=== PATIENT | male | born 1980 | race Caucasian/White ===

== ENCOUNTER 2016-10-03 22:08 | Emergency (ER) | payer BC ==
[2016-10-04] MEDS ORDERED: NS 0.9% 1000 ML* 2,000 ML IV ONE (00:31)
[2016-10-04] MEDS ORDERED: Acetaminophen TAB* 325 MG ONE (00:47)
[2016-10-04] MEDS ORDERED: Acetaminophen TAB* 325 MG PO ONE ×2 (00:49→05:11)
[2016-10-04 00:58] LABS: Hematocrit 48 % (42-52); Hemoglobin 16.5 g/dl (14.0-18.0); Mean Corpuscular HGB Conc 34 g/dl (31-36); Mean Corpuscular Hemoglobin 34 pg (27-31); Mean Corpuscular Volume 98 fL (80-94); Mean Platelet Volume 8 um3 (7.4-10.4); Red Blood Count 4.91 10^6/ul (4.0-5.4); Red Cell Distribution Width 13 % (10.5-15); White Blood Count 15.2 10^3/ul (3.5-10.8)
[2016-10-04 01:04] LABS: Albumin 3.7 g/dL (3.2-5.2); BUN/Creatinine Ratio 10.1 (8-20); Calcium 9.5 mg/dL (8.6-10.3); EGFR African American 168.8 (>60); EGFR Non-African American 131.3 (>60); Globulin 3.8 g/dL (2-4); Magnesium 1.4 mg/dL (1.9-2.7); Potassium 3.2 mmol/L (3.5-5.0); Total Bilirubin 0.9 mg/dL (0.2-1.0); Total Protein 7.5 g/dL (6.4-8.9)
[2016-10-04 01:19] LABS: Urine Bacteria Absent (Absent); Urine Bilirubin 1+ (Negative); Urine Glucose Negative (Negative); Urine Nitrite Negative (Negative)
[2016-10-04] MEDS ORDERED: cefTRIAXone VIAL(*) 250 MG VIAL IM ONE (01:49)
[2016-10-04] MEDS ORDERED: Azithromycin TAB* 250 MG PO ONE (01:49)
[2016-10-04] MEDS ORDERED: Lidocaine 1%* 5 ML VIAL ONE (02:08)
--- NOTE | 2016-10-04 03:26 | ED ---
Ashleigh Garcia Rebecca, scribed for Paulo Lin MD on 10/04/16 at 0033 . HPI Febrile Illness - HPI Summary HPI Summary: Pt is a 36 y/o M who presents to ED c/o fever. Sx began at 1800 today and was 103 at its highest. Took Iuprofen at 2030 which alleviated sx. Additionally c/o purulent penile discharge and dysuria for 4 days. Denies N/V/D. No prior similar episodes. Pt reports known gonorrhea exposure. Has not seen his PCP for this issue. - History of Current Complaint Chief Complaint: EDFever Time Seen by Provider: 10/04/16 00:28 Hx Obtained From: Patient Onset/Duration: Still Present Time of Onset: 18:00 Temperature: 103 F Current Severity: Mild Pain Intensity: 3 Pain Scale Used: 0-10 Numeric Aggravating Factors: Nothing Alleviating Factors: OTC Medicine - Ibuprofen Associated Signs and Symptoms: Dysuria, Other: - Penile discharge - Allergy/Home Medications Allergies/Adverse Reactions: Allergies Allergy/AdvReac Type Severity Reaction Status Date / Time No Known Allergies Allergy Verified 10/03/16 22:10 PMH/Surg Hx/FS Hx/Imm Hx Endocrine/Hematology History: Denies: Hx Diabetes Cardiovascular History: Denies: Hx Coronary Artery Disease, Hx Hypertension Infectious Disease History: No Infectious Disease History: Denies: Traveled Outside the [place] in Last 30 Days - Family History Known Family History: Positive: Hypertension - Social History Alcohol Use: Daily Substance Use Type: Reports: Marijuana Smoking Status (MU): Never Smoked Tobacco Review of Systems Positive: Fever Negative: Vomiting, Diarrhea, Nausea Positive: dysuria, discharge - Purulent penile discharge All Other Systems Reviewed And Are Negative: Yes Physical Exam Triage Information Reviewed: Yes Vital Signs On Initial Exam: Initial Vitals Temp Pulse Resp BP Pulse Ox 99.6 F 141 20 199/107 100 10/03/16 22:11 10/03/16 22:11 10/03/16 22:11 10/03/16 22:11 10/03/16 22:11 Vital Signs Reviewed: Yes Appearance: Positive: Well-Appearing, No Pain Distress Skin: Positive: Warm Head/Face: Positive: Normal Head/Face Inspection Eyes: Positive: MICHAEL ENT: Positive: Hearing grossly normal Neck: Positive: Supple Respiratory/Lung Sounds: Positive: Breath Sounds Present Cardiovascular: Positive: RRR Abdomen Description: Positive: Nontender, Soft Bowel Sounds: Positive: Present Male Genital Exam: Positive: urethral discharge Musculoskeletal: Positive: Strength/ROM Intact Neurological: Positive: Alert, Oriented to Person Place, Time Psychiatric: Positive: Affect/Mood Appropriate - Alfred Coma Scale Coma Scale Total: 15 Diagnostics - Vital Signs Vital Signs Temp Pulse Resp BP Pulse Ox 10/04/16 00:00 118 14 146/119 95 10/03/16 22:15 99.6 F 141 21 199/107 100 10/03/16 22:11 99.6 F 141 20 199/107 100 - Laboratory Result Diagrams: 10/04/16 05:23 10/04/16 00:31 Lab Statement: Any lab studies that have been ordered have been reviewed, and results considered in the medical decision making process. - Radiology CXR Xray Interpretation: No Acute Changes Radiology Interpretation Completed By: ED Physician - EKG 0257 Cardiac Rate: Tachycardia - 115 bpm EKG Rhythm: Sinus Tachycardia EKG Interpretation: Normal Re-Evaluation - Re-Evaluation First Eval Change: Improved - feels better, results d/w pt Course/Dx - Course Assessment/Plan: Pt is a 36 y/o M who presents to ED c/o fever. Sx began at 1800 today and was 103 at its highest. Took Iuprofen at 2030 which alleviated sx. Additionally c/o purulent penile discharge and dysuria for 4 days. Denies N/ V/D. No prior similar episodes. Pt reports known gonorrhea exposure. Has not seen his PCP for this issue. WBC of 15.2 then 13.5. CXR reveals no acute finding , as read by ED physician and the EKG reveals sinus tacycardia. In the ED course , pt was administered Tylenol, Zithromax, Rocephin, Motrin and fluids. He will be D/C to home with Dx of fever and urethritis and a follow up with his PCP. He understands and agrees. Elevated BP noted and advised to f/u with PCP. - Diagnoses Provider Diagnoses: Fever, Urethritis Discharge - Discharge Plan Condition: Stable Disposition: HOME Patient Education Materials: Fever in Adults (ED), Nonspecific Urethritis in Men (ED) Referrals: [facility] [place] [facility] [Outside] - 3 Days Additional Instructions: Return to ED for any returning or worsening symptoms. The documentation as recorded by the Ashleigh [email or web address] Rebecca accurately reflects the service I personally performed and the decisions made by me, Paulo Lin MD.
[2016-10-04] MEDS ORDERED: Ibuprofen TAB* 600 MG PO ONE (04:07)
[2016-10-04 05:49] LABS: Hematocrit 45 % (42-52); Hemoglobin 15.3 g/dl (14.0-18.0); Mean Corpuscular HGB Conc 34 g/dl (31-36); Mean Corpuscular Hemoglobin 34 pg (27-31); Mean Corpuscular Volume 98 fL (80-94); Mean Platelet Volume 7 um3 (7.4-10.4); Red Blood Count 4.56 10^6/ul (4.0-5.4); Red Cell Distribution Width 13 % (10.5-15); White Blood Count 13.5 10^3/ul (3.5-10.8)
[2016-10-04 06:29] VITALS: BP 156/111
--- NOTE | 2016-10-04 07:59 | RAD ---
HISTORY: Fever COMPARISONS: None VIEWS: 4: Frontal dual-energy and lateral views of the chest. FINDINGS: CARDIOMEDIASTINAL SILHOUETTE: The cardiomediastinal silhouette is normal. TWIN: The twin are normal. PLEURA: The costophrenic angles are sharp. No pleural abnormalities are noted. LUNG PARENCHYMA: The lungs are clear. ABDOMEN: The upper abdomen is clear. There is no subphrenic gas. BONES AND SOFT TISSUES: No bone or soft tissue abnormalities are noted. OTHER: None. IMPRESSION: NO ACTIVE CARDIOPULMONARY DISEASE.
== END 2016-10-04 06:54 | disposition home or self-care (01) ==
LOC: ED 22:08
DX: R50.9 Fever, unspecified (principal); N34.2 Other urethritis
CPT/HCPCS: 36415; 71020; 80053; 81003; 81015; 83605; 83735; 85025; 86703; 87086; 87491; 87591; 93005; 99284; A9270-GY; J0696

== ENCOUNTER 2017-11-07 11:17 | Emergency (ER) | payer BC ==
[2017-11-07 11:32] VITALS: BP 178/100
--- NOTE | 2017-11-07 12:04 | UC ---
General HPI - HPI Summary HPI Summary: 37yo patient states that for the past few weeks has had increased thirst, nausea ,(and vomited once several weeks ago after a meal) and finger/toe tingling. He states he has not been to the doctor since high school and besides the fact that he knows he has psoriasis and dandruff, does not know if he has chronic HTN or any other conditions. He states he is an alcoholic and drinks a fifth of whiskey every night. He also states he smokes marihuana. Denies other substance abuse. Denies taking any medications, supplements/herbals. He states his weight has been consistent and denies changes in apetite, diarrhea, abdominal pain, dizziness, SOB, CP , palpitations or LEES. He states he would like to quit drinking and wants to be referred to a detox program. - History of Current Complaint Chief Complaint: UCGeneralIllness Stated Complaint: GLUCOSE TESTING Time Seen by Provider: 11/07/17 11:34 Hx Obtained From: Patient Onset/Duration: Sudden Onset Onset Severity: Mild Current Severity: None Pain Intensity: 0 Associated Signs & Symptoms: Positive: Nausea - Allergy/Home Medications Allergies/Adverse Reactions: Allergies Allergy/AdvReac Type Severity Reaction Status Date / Time No Known Allergies Allergy Verified 11/07/17 11:32 Home Medications: Home Medications NK [No Home Medications Reported] 11/07/17 [History Confirmed 11/07/17] PMH/Surg Hx/FS Hx/Imm Hx Previously Healthy: Yes - Surgical History Surgical History: None - Family History Known Family History: Positive: Hypertension, Diabetes - Social History Alcohol Use: Daily Substance Use Type: Marijuana Smoking Status (MU): Never Smoked Tobacco Review of Systems Constitutional: Negative Skin: Rash Neurological: Paresthesia All Other Systems Reviewed And Are Negative: Yes Physical Exam Triage Information Reviewed: Yes Appearance: Well-Appearing, No Pain Distress, Obese Vital Signs: Initial Vital Signs Temp 98.6 F 11/07/17 11:20 Pulse 97 11/07/17 11:20 Resp 20 11/07/17 11:20 BP 178/100 11/07/17 11:20 Pulse Ox 99 11/07/17 11:20 Vital Signs Reviewed: Yes Eyes: Positive: Conjunctiva Clear ENT: Positive: Hearing grossly normal, Pharynx normal, TMs normal, Uvula midline Neck: Positive: Supple, Nontender, No Lymphadenopathy Respiratory: Positive: Chest non-tender, Lungs clear, Normal breath sounds, No respiratory distress Cardiovascular: Positive: RRR, No Murmur, Pulses Normal, Brisk Capillary Refill Abdomen Description: Positive: Nontender - diasthesis of recti muscles, No Organomegaly, Soft Bowel Sounds: Positive: Present Musculoskeletal: Positive: Strength Intact, ROM Intact, No Edema, Other: - capillary refill brisk, distal pulses present all extremities. Skin: Positive: rashes - erythematous scaly rash behind ears. Erythematous raised papules on knuckles and proximal phalanges of right index finger and left middle finger Course/Dx - Course Course Of Treatment: Patient with history of alcohol abuse who presents with fingertip and toe tingling, increased thirst and occasional nausea. CBC, CHEM14 , CKMB, RF, CRP, vitamin B1, B2, B12 and folate levels drawned. Advised to start thiamine and vitamin B complex supplementation and f/u to stablish care with PCP and [facility] program. Follow up BP with PCP. Currently asymptomatic. - Differential Dx - Multi-Symptom Provider Diagnoses: elevated BP without history of HTN. Paresthesias. Alcohol abuse Discharge - Sign-Out/Discharge Documenting (check all that apply): Patient Departure All imaging exams completed and their final reports reviewed: No Studies - Discharge Plan Condition: Stable Disposition: HOME Patient Education Materials: Abuse of Alcohol (ED), Chronic Hypertension (ED), Paresthesia (ED) Referrals: No Primary Care Phys,NOPCP [Primary Care Provider] - [facility] – [place] [facility] [Outside] [facility] Residential Facility [Outside] - Billing Disposition and Condition Condition: STABLE Disposition: Home
[2017-11-07 14:36] LABS: ABS Basophils 0 10^3/ul (0-0.2); ABS Eosinophils 0.1 10^3/ul (0-0.6); ABS Lymphocytes 1.5 10^3/ul (1.0-4.8); ABS Monocytes 0.8 10^3/ul (0-0.8); ABS Neutrophils 7.7 10^3/ul (1.5-7.7); ABS Nucleated RBC 0 10^3/ul; Eosinophil % 0.8 % (0-6); Hematocrit 49 % (42-52); Hemoglobin 17.2 g/dl (14.0-18.0); Lymphocyte % 15.1 % (25-47); Mean Corpuscular HGB Conc 35 g/dl (31-36); Mean Corpuscular Hemoglobin 33 pg (27-31); Mean Corpuscular Volume 95 fL (80-94); Mean Platelet Volume 7.3 um3 (7.4-10.4); Nucleated Red Blood Cells % 0.1; Platelet Count 277 10^3/ul (150-450); Red Blood Count 5.17 10^6/ul (4.00-5.40); Red Cell Distribution Width 14 % (10.5-15); White Blood Count 10.1 10^3/ul (3.5-10.8)
--- NOTE | 2017-11-08 09:19 | UC ---
- Progress Note Progress Note: Called patient regarding available test results, CBC with MCV elevation, Comp 14 shows elevation of liver function and CRP elevation. RF negative. Discussed results with patient, to follow up with primary care and [facility] and retrieve test results for further monitoring of alcohol abuse and other symptoms. Discharge - Sign-Out/Discharge Documenting (check all that apply): Post-Discharge Follow Up All imaging exams completed and their final reports reviewed: No Studies - Discharge Plan Condition: Stable Disposition: HOME Patient Education Materials: Abuse of Alcohol (ED), Chronic Hypertension (ED), Paresthesia (ED) Referrals: [facility] – [place] [facility] [Outside] [facility]idential Facility [Outside] No Primary Care Phys,NOPCP [Primary Care Provider] - - Billing Disposition and Condition Condition: STABLE Disposition: Home
== END 2017-11-07 12:55 | disposition home or self-care (01) ==
LOC: UCEAST 11:17
DX: R20.2 Paresthesia of skin (principal); R63.1 Polydipsia; R11.0 Nausea; F10.10 Alcohol abuse, uncomplicated; R03.0 Elevated blood-pressure reading, without diagnosis of hypertension
CPT/HCPCS: 36415; 80053; 82553; 82607; 82746; 84425; 85025; 86140; 86431; 99211; G0463

== ENCOUNTER 2018-04-28 10:32 | Emergency (ER) | payer BC ==
--- NOTE | 2018-04-28 11:26 | UC ---
Back Pain HPI - HPI Summary HPI Summary: 37-year-old male presents with onset of right lower back pain 4 days ago when he tripped while bending over to grain picker an object and caused a twisting injury to his lower back. Describes pain as a constant ache that worsens with movement especially bending or twisting. Nonradiating. Denies fever, chills, rash, bruising, weakness, numbness, tingling of the lower extremities, or loss of bowel or bladder control. - History of Current Complaint Chief Complaint: UCBackPain Stated Complaint: BACK INJURY Time Seen by Provider: 04/28/18 10:48 Hx Obtained From: Patient Pain Intensity: 7 - Allergies/Home Medications Allergies/Adverse Reactions: Allergies Allergy/AdvReac Type Severity Reaction Status Date / Time No Known Allergies Allergy Verified 04/28/18 10:40 PMH/Surg Hx/FS Hx/Imm Hx Previously Healthy: Yes - Denies significant PMH - Surgical History Surgical History: None - Family History Known Family History: Positive: Hypertension, Diabetes - Social History Occupation: Employed Full-time Lives: Alone Alcohol Use: Daily Substance Use Type: Marijuana Smoking Status (MU): Never Smoked Tobacco Review of Systems All Other Systems Reviewed And Are Negative: Yes Constitutional: Negative: Fever, Chills Skin: Negative: Rash Respiratory: Positive: Negative Cardiovascular: Positive: Negative Gastrointestinal: Negative: Abdominal Pain, Vomiting, Nausea, Other - bowel incontinence Genitourinary: Negative: Dysuria, Hematuria, Frequency, Urgency, Other - urinary incontinence Motor: Negative: Weakness Neurovascular: Negative: Decreased Sensation Musculoskeletal: Positive: Other: - See HPI Neurological: Positive: Negative Is Patient Immunocompromised?: No Physical Exam - Summary Physical Exam Summary: GENERAL APPEARANCE: Well developed, well nourished, alert and cooperative, and appears to be in no acute distress. NECK: Neck supple, non-tender without lymphadenopathy. CARDIAC: Normal S1 and S2. No S3, S4 or murmurs. Rhythm is regular. There is no peripheral edema, cyanosis or pallor. Extremities are warm and well perfused. Capillary refill is less than 2 seconds. Peripheral pulses intact. LUNGS: Clear to auscultation without rales, rhonchi, wheezing or diminished breath sounds. ABDOMEN: Positive bowel sounds. Soft, nondistended, nontender. No guarding or rebound. No masses or hepatosplenomegally. MUSKULOSKELETAL: ROM intact to all extremities. No joint erythema or tenderness. Normal muscular development. Normal gait. BACK: Examination of the spine reveals normal posture, no spinal deformity or tenderness. Right lower lumbar soft tissue tenderness without spasm. NEUROLOGICAL: Strength, muscle tone, and sensation symmetric and intact throughout. SKIN: Skin normal color, texture and turgor with no lesions or eruptions. Triage Information Reviewed: Yes Vital Signs: Initial Vital Signs Temp 97.4 F 04/28/18 10:36 Pulse 100 04/28/18 10:36 Resp 20 04/28/18 10:36 BP 203/138 04/28/18 10:36 Pulse Ox 98 04/28/18 10:36 Vital Signs Reviewed: Yes Back Pain Course/Dx - Course Course Of Treatment: 37-year-old male presents with onset of right lower back pain 4 days ago when he tripped while bending over to grain picker an object and caused a twisting injury to his lower back. Describes pain as a constant ache that worsens with movement especially bending or twisting. Nonradiating. Denies fever, chills, rash, bruising, weakness, numbness, tingling of the lower extremities, or loss of bowel or bladder control. Afebrile. Hypertensive response signs stable. Exam reveals an adult male in no acute distress with right lower lumbar soft tissue tenderness without spasm, no spinal tenderness or deformity, strength, muscle tone, and sensation intact, and otherwise unremarkable exam. I am recommending conservative treatment with NSAIDs, muscle relaxant, and heat therapy. A repeat manual blood pressure was time which was essentially unchanged from previous. I am recommending that he have this followed up urgently at the [facility] see is currently without a primary care provider. He was given contact information for the [facility] physician referral service to assist with establishing with a primary. He is to return here or with primary care provider in one week if his back pain does not improve. Anticipatory guidance and warning symptoms are reviewed with the patient. Verbalized understanding and agrees with plan of care. - Differential Dx/Diagnosis Differential Diagnosis/HQI/PQRI: Herniated Disc, Renal Colic, Strain Provider Diagnosis: Acute low back pain, Elevated blood pressure reading Discharge - Sign-Out/Discharge Documenting (check all that apply): Patient Departure All imaging exams completed and their final reports reviewed: No Studies - Discharge Plan Condition: Stable Disposition: HOME Prescriptions: Cyclobenzaprine TAB* [Flexeril 10 MG TAB*] 10 mg PO TID PRN #21 tab PRN Reason: Spasms - Back Naproxen [Naproxen 500 mg tab] 500 mg PO BID #30 tablet Patient Education Materials: Acute Low Back Pain (ED) Forms: *Work Release Referrals: [facility] [place] [facility] [place]] No Primary Care Phys,NOPCP [Primary Care Provider] - Care [facility] [Outside] - 7 Days Additional Instructions: Take naproxen 1 tab every 12 hours with food for the next 5-7 days then you may take every 12 hours as needed for pain. Take cyclobenzaprine (Flexeril) 1 tab every 8 hours as needed for severe pain or spasm. This will cause drowsiness so do not take and drive or operate machinery. Stay as active as possible. Apply heat to the affected area for 15-20 minutes at least 4 times a day for next few days. Once the pain is improved start using the low back exercises that were provided to you. Return here or follow up with a primary care provider if symptoms do not improve in 1 week. I have provided you with the contact information for the [facility] physician referral service to assist you with establishing with a provider. You blood pressure was very elevated in the clinic today. I would recommend that you have this rechecked within 1-2 weeks. You can call the [facility] [place] appointment until you can establish with a primary care provider. Seek immediate medical attention in the emergency room if you develop severe pain not managed with pain medication, you lose control of your bowel or bladder , develop numbness, tingling, or weakness in the lower extremities, or any worsening of symptoms. - Billing Disposition and Condition Condition: STABLE Disposition: Home
[2018-04-28 11:33] VITALS: BP 198/116
== END 2018-04-28 11:47 | disposition home or self-care (01) ==
LOC: UCEAST 10:32
DX: M54.5 Low back pain (principal); R03.0 Elevated blood-pressure reading, without diagnosis of hypertension

== ENCOUNTER 2020-05-21 02:37 | Inpatient (IN) ==
[2020-05-21] MEDS ORDERED: NS 0.9% 1000 ml BAG 1,000 ML IV ONE ×3 (02:58→07:34)
[2020-05-21 03:51] LABS: ABS Basophils 0.1 10^3/ul (0-0.2); ABS Lymphocytes 1.1 10^3/ul (1.0-4.8); ABS Neutrophils 8.9 10^3/ul (1.5-7.7); Eosinophil % 0.2 %; Hematocrit 43 % (42-52); Hemoglobin 14.7 g/dL (14.0-18.0); Lymphocyte % 10.3 %; Mean Corpuscular HGB Conc 34 g/dL (31-36); Mean Corpuscular Hemoglobin 34 pg (27-31); Mean Corpuscular Volume 99 fL (80-94); Mean Platelet Volume 6.6 fL (7.4-10.4); Platelet Count 200 10^3/uL (150-450); Red Blood Count 4.35 10^6 /uL (4.18-5.48); Red Cell Distribution Width 14 % (10-15); White Blood Count 11.1 10^3/uL (3.5-10.8)
[2020-05-21 03:55] LABS: INR 1.38 (0.82-1.09)
[2020-05-21 04:06] LABS: Albumin 4.2 g/dL (3.2-5.2); Albumin/Globulin Ratio 1.2 (1-3); BUN/Creatinine Ratio 13.8 (8-20); Calcium 9.6 mg/dL (8.6-10.3); EGFR African American 167.3 (>60); EGFR Non-African American 138.2 (>60); Globulin 3.4 g/dL (2-4); Potassium 3.2 mmol/L (3.5-5.0); Total Bilirubin 1.3 mg/dL (0.2-1.0); Total Protein 7.6 g/dL (6.4-8.9)
[2020-05-21] MEDS: Labetalol IV 5 MG/ML 20 ml VIAL IV PUSH ONE ×2 (04:19→05:22)
[2020-05-21 04:21] LABS: TSH Ultra Thyroid Stim Horm 2.65 mcIU/mL (0.34-5.60)
[2020-05-21] MEDS ORDERED: Labetalol IV 5 MG/ML 20 ml VIAL IV PUSH ONE ×2 (05:27→22:52)
[2020-05-21] MEDS ORDERED: Lorazepam PYXIS KEY PRN ×6 (05:34→11:08)
[2020-05-21] MEDS ORDERED: LORazepam 2 mg VIAL 1 ml IV PUSH ONE ×4 (05:34→07:29)
[2020-05-21] MEDS ORDERED: Lorazepam PYXIS KEY ONE ×2 (05:39→06:35)
[2020-05-21 05:42] LABS: Urine Appearance Cloudy; Urine Bilirubin Negative (Negative); Urine Blood 2+ (Negative); Urine Color Amber; Urine Glucose Negative (Negative); Urine Ketones 2+ (Negative); Urine Nitrite Negative (Negative); Urine Protein 2+(100 mg/dL) (Negative); Urine Specific Gravity 1.026 (1.002-1.030); Urine Urobilinogen Positive (Negative)
[2020-05-21 05:46] LABS: Urine Bacteria Absent (Absent); Urine Red Blood Cell 3+(>10/hpf) (Absent); Urine Squamous Epithelial Cell Present (Absent); Urine White Blood Cell 1+(6-10/hpf) (Absent)
[2020-05-21 05:54] LABS: Urine Benzodiazepine Screen None Detected (None Detect); Urine Cannabinoids Screen Presumptive Positive (None Detect); Urine Opiates Screen None Detected (None Detect)
[2020-05-21] MEDS ORDERED: LORazepam 2 mg VIAL 1 ml IV PUSH PRN (07:29)
[2020-05-21] MEDS ORDERED: cefTRIAXone 1 gm/50 mL NS BAG 1 GM/50 ML BAG IV ONE (07:34)
[2020-05-21] MEDS ORDERED: Ondansetron 4 mg VIAL 2 MG/ML 2 ml VIAL IV PRN (10:56)
[2020-05-21] MEDS ORDERED: Thiamine 100 MG/ML 2 ml VIAL (200 mg) IM ONE (11:04)
[2020-05-21 13:30] LABS: Hepatitis B Surface Antigen Nonreactive (Nonreactive)
[2020-05-21 13:35] LABS: Hepatitis A Ab IgM Negative (Negative); Hepatitis B Core IgM Nonreactive (Nonreactive)
[2020-05-21 13:47] LABS: Hepatitis C Antibody Negative (Negative)
[2020-05-22] MEDS ORDERED: hydrALAZINE 20 mg/ml 1 ML Vial IV IV SLOW PU ONE ×2 (00:24→01:18)
[2020-05-22] MEDS ORDERED: hydrALAZINE 20 mg/ml 1 ML Vial IV ONE (00:33)
[2020-05-22] MEDS ORDERED: hydrALAZINE 20 mg/ml 1 ML Vial IV IV SLOW PU PRN (01:09)
[2020-05-22] MEDS ORDERED: Oxymetazoline 0.05% NASAL SPR 15 ML BTL BOTH NARES PRN (02:05)
[2020-05-22] MEDS ORDERED: COCAINE 4% TOPICAL ONE (03:00)
[2020-05-22] MEDS ORDERED: Labetalol IV 5 MG/ML 20 ml VIAL IV PUSH ONE (04:19)
[2020-05-22 05:50] LABS: ABS Basophils 0.1 10^3/ul (0-0.2); ABS Eosinophils 0.1 10^3/ul (0-0.6); ABS Lymphocytes 1.9 10^3/ul (1.0-4.8); ABS Monocytes 1.1 10^3/ul (0-0.8); ABS Neutrophils 7.6 10^3/ul (1.5-7.7); Eosinophil % 0.7 %; Hematocrit 35 % (42-52); Lymphocyte % 17.7 %; Mean Corpuscular HGB Conc 34 g/dL (31-36); Mean Corpuscular Hemoglobin 34 pg (27-31); Mean Corpuscular Volume 99 fL (80-94); Mean Platelet Volume 6.7 fL (7.4-10.4); Platelet Count 182 10^3/uL (150-450); Red Blood Count 3.54 10^6 /uL (4.18-5.48); Red Cell Distribution Width 15 % (10-15); White Blood Count 10.8 10^3/uL (3.5-10.8)
[2020-05-22 06:06] LABS: Albumin 3.5 g/dL (3.2-5.2); Albumin/Globulin Ratio 1.3 (1-3); BUN/Creatinine Ratio 25.4 (8-20); Calcium 8.6 mg/dL (8.6-10.3); EGFR Non-African American 154.6 (>60); Globulin 2.7 g/dL (2-4); Potassium 3.1 mmol/L (3.5-5.0); Total Bilirubin 1.3 mg/dL (0.2-1.0); Total Protein 6.2 g/dL (6.4-8.9)
[2020-05-22] MEDS: Multivitamins/Minerals TAB PO SCH (08:48)
[2020-05-22] MEDS ORDERED: Influenza VAC *QUAD* 2020-21* 0.5 ML SYRINGE IM ONE (09:00)
[2020-05-22 09:16] LABS: Folate 1.49 ng/mL (5.90-24.80)
[2020-05-22] MEDS: hydrALAZINE 20 mg/ml 1 ML Vial IV IV SLOW PU PRN ×2 (14:46→22:18)
[2020-05-22] MEDS: KCL 20 MEQ/100 ML IVPREMIX 20 MEQ/100 ML BAG IV SCH ×3 (15:41→21:44)
[2020-05-22] MEDS: LORazepam 2 mg VIAL 1 ml IV PUSH SCH (20:24)
[2020-05-23] MEDS: LORazepam 2 mg VIAL 1 ml IV PUSH SCH (00:21)
[2020-05-23] MEDS: Multivitamins/Minerals TAB PO SCH (07:32)
[2020-05-23] MEDS: hydrALAZINE 20 mg/ml 1 ML Vial IV IV SLOW PU PRN (08:04)
[2020-05-23 12:15] VITALS: BP 154/82
== END 2020-05-23 12:45 | disposition home or self-care (01) | DRG 775 ==
LOC: ED 02:37 → MEDTELE 12:31
PROVIDERS: ADMIT Internal Medicine; ATTEND Internal Medicine

== ENCOUNTER 2021-12-04 12:31 | Inpatient (IN) ==
[2021-12-04] MEDS ORDERED: Lorazepam PYXIS KEY PRN ×2 (14:15→17:03)
[2021-12-04] MEDS ORDERED: LORazepam 2 mg VIAL 1 ml IV PUSH ONE ×2 (14:15→17:03)
[2021-12-04] MEDS ORDERED: Clindamycin 600 MG/D5W BAG 600 MG/50 ML BAG IV ONE (14:17)
[2021-12-04 14:32] LABS: ABS Lymphocytes 1.8 10^3/ul (1.0-4.8); ABS Monocytes 1.5 10^3/ul (0-0.8); ABS Neutrophils 11.6 10^3/ul (1.5-7.7); Eosinophil % 0.1 %; Hematocrit 44 % (42-52); Hemoglobin 14.6 g/dL (14.0-18.0); Lymphocyte % 12.3 %; Mean Corpuscular HGB Conc 33 g/dL (31-36); Mean Corpuscular Hemoglobin 30 pg (27-31); Mean Corpuscular Volume 90 fL (80-94); Mean Platelet Volume 6.9 fL (7.4-10.4); Platelet Count 228 10^3/uL (150-450); Red Blood Count 4.89 10^6 /uL (4.18-5.48); Red Cell Distribution Width 15 % (10-15); White Blood Count 14.9 10^3/uL (3.5-10.8)
[2021-12-04 15:42] LABS: Albumin 4.5 g/dL (3.2-5.2); Albumin/Globulin Ratio 1.3 (1-3); C Reactive Protein 83.22 mg/L (<8.01); Calcium 9.6 mg/dL (8.6-10.3); Globulin 3.5 g/dL (2-4); Magnesium 1.7 mg/dL (1.9-2.7); Potassium 3.4 mmol/L (3.5-5.0); Total Bilirubin 1.2 mg/dL (0.2-1.0); eGFR CKD-EPI 120.2 (>60)
[2021-12-04] MEDS ORDERED: Enoxaparin 40 MG/0.4 ML SYR SUBCUT SCH (18:00)
[2021-12-04] MEDS ORDERED: Thiamine 100 MG/ML 2 ml VIAL (200 mg) IM ONE (18:57)
[2021-12-04] MEDS ORDERED: Magnesium Sulfate IV 3 GM in NS 0.9% 100 ml BAG 100 ML IVPB ONE (19:16)
[2021-12-04] MEDS ORDERED: cloNIDine 0.1 MG PATCH 0.1 MG/24 HR 7 DAY PATCH TRANSDERM SCH (20:00)
[2021-12-04] MEDS: KCL 20 MEQ/100 ML IVPREMIX 20 MEQ/100 ML BAG IV SCH ×2 (21:37→23:58)
[2021-12-05 05:11] LABS: ABS Eosinophils 0.1 10^3/ul (0-0.6); ABS Lymphocytes 2.3 10^3/ul (1.0-4.8); ABS Neutrophils 7.1 10^3/ul (1.5-7.7); Eosinophil % 1.1 %; Hematocrit 40 % (42-52); Hemoglobin 12.9 g/dL (14.0-18.0); Lymphocyte % 21.6 %; Mean Corpuscular HGB Conc 33 g/dL (31-36); Mean Corpuscular Hemoglobin 30 pg (27-31); Mean Corpuscular Volume 91 fL (80-94); Mean Platelet Volume 6.7 fL (7.4-10.4); Platelet Count 185 10^3/uL (150-450); Red Blood Count 4.35 10^6 /uL (4.18-5.48); Red Cell Distribution Width 16 % (10-15); White Blood Count 10.6 10^3/uL (3.5-10.8)
[2021-12-05 05:39] LABS: Calcium 8.5 mg/dL (8.6-10.3); Potassium 3.6 mmol/L (3.5-5.0); eGFR CKD-EPI 122.9 (>60)
[2021-12-05] MEDS ORDERED: Multivitamins/Minerals TAB PO SCH (09:00)
[2021-12-05] MEDS ORDERED: Influenza vaccine *QUAD* *2022-23* 0.5 ML SYRINGE IM ONE (14:00)
[2021-12-05] MEDS ORDERED: Pneumococcal Vac 23-Polyvalent IM ONE (14:00)
[2021-12-05 14:30] VITALS: BP 179/115
== END 2021-12-05 14:50 | disposition home or self-care (01) | DRG 383 ==
LOC: SUATTDRO → ED 12:31 → EDHOLD 16:54 → SUATTDRO 16:54 → MED 12-05 08:20
PROVIDERS: ADMIT Internal Medicine; ATTEND Internal Medicine